=== PATIENT | female | born 1950 | race Caucasian/White ===

== ENCOUNTER 2020-12-28 18:30 | Emergency (ER) | payer OTHER ==
[2020-12-28 20:16] LABS: HEMOGLOBIN 13.9 gm/dl (12.3-15.3); RED BLOOD COUNT 4.68 M/UL (4.00-5.10); WHITE BLOOD COUNT 7.3 K/UL (4.5-11.0)
[2020-12-28 20:37] LABS: BUN/CREATININE RATIO 12 (0-10)
[2020-12-28] MEDS ORDERED: MECLIZINE HCL25 MG PO (23:23)
== END 2020-12-29 | disposition home or self-care (01) ==
LOC: ER1 18:30
PROVIDERS: Physician Assistant
DX: H72.91 Unspecified perforation of tympanic membrane, right ear (principal); I10 Essential (primary) hypertension; J45.909 Unspecified asthma, uncomplicated; Z95.5 Presence of coronary angioplasty implant and graft; Z90.710 Acquired absence of both cervix and uterus; Z88.8 Allergy status to other drugs, medicaments and biological substances
CPT/HCPCS: 70470; 80048; 81001; 85025; 87086; 99284; Q9963